=== PATIENT | male | born 2000 | race Two or more races ===

== ENCOUNTER 2022-01-08 02:33 | Emergency (ER) | payer SELFPAY ==
[2022-01-08 03:13] LABS: BASOPHIL 0.6 % (0-2); EOSINOPHIL 13.9 % (0-5); HCT 46.5 % (42.0-52.0); HGB 16.2 g/dl (13.2-18.0); LYMPHOCYTE 29.8 % (15-48); MCH 31.2 pg (25.0-31.0); MCHC 34.8 g/dL (32.0-36.0); MCV 89.4 fL (78.0-100.0); MONOCYTE 7.3 % (0-12); NEUTROPHIL 47.2 % (41-80); NRBC 0; PLT 284 K/uL (150-400); RDW 12.7 % (11.5-14.0); WBC 13.2 K/uL (4.0-10.5)
[2022-01-08 03:36] LABS: CORONAVIRUS 2019 SARS-COV-2 NEGATIVE (NEGATIVE); INFLUENZA A NAA NEGATIVE (NEGATIVE)
[2022-01-08 03:41] LABS: BILIRUBIN NEGATIVE (NEGATIVE); BLOOD NEGATIVE Ery/uL (NEGATIVE); CLARITY CLEAR (CLEAR); COLOR YELLOW (YELLOW); GLUCOSE (U) NORMAL (NORMAL); LEUKOCYTES NEGATIVE Leu/uL (NEGATIVE); NITRITE NEGATIVE (NEGATIVE); PROTEIN NEGATIVE (NEGATIVE); SPECIFIC GRAVITY 1.025 (1.001-1.030); UROBILINOGEN 0.2 mg/dL (0.2-1.0)
[2022-01-08 03:45] LABS: AMPHETAMINES NEGATIVE (NEGATIVE); BARBITURATES NEGATIVE (NEGATIVE); ECSTASY (MDMA) NEGATIVE (NEGATIVE); MARIJUANA (THC) NEGATIVE (NEGATIVE); METHADONE NEGATIVE (NEGATIVE); OPIATES NEGATIVE (NEGATIVE); OXYCODONE NEGATIVE (NEGATIVE)
[2022-01-08 04:16] LABS: ALBUMIN 4.4 g/dL (3.4-5.0); BILIRUBIN - TOTAL 0.4 mg/dL (0.2-1.0); BUN/CREAT RATIO (CALC) 16.7 RATIO; CREATININE 0.96 mg/dL (0.67-1.17); GLOBULIN (CALCULATION) 3.2 g/dL; TOTAL PROTEIN 7.6 g/dL (6.4-8.2)
== END 2022-01-08 05:40 | disposition home or self-care (01) ==
LOC: FER 02:33
PROVIDERS: Emergency Medicine
DX: R00.2 Palpitations (principal); E86.0 Dehydration; F17.200 Nicotine dependence, unspecified, uncomplicated; Z20.822 Contact with and (suspected) exposure to COVID-19
CPT/HCPCS: 36415; 71045; 80053; 80305; 81003; 84443; 84484; 85025; 85379; 93005; G0480; J7030; U0002